=== PATIENT | female | born 1955 | race Two or more races ===

== ENCOUNTER 2019-06-21 08:07 | Emergency (ER) | payer OTHER ==
[~2019-06-21] VITALS: Ht 167.6 cm; Wt 68.0 kg
[2019-06-21 08:59] LABS: BASOPHIL % 0.5 % (0-2); PLATELET COUNT 375 x10^3mcL (130-400); RED CELL DISTRIBUTION WIDTH 13.5 % (11.5-14.5)
[2019-06-21 09:01] LABS: ALKALINE PHOSPHATASE 108 U/L (46-116); ALT/SGPT 48 U/L (14-59); AST/SGOT 26 U/L (15-37); BILIRUBIN TOTAL 0.4 mg/dL (0.20-1.00); CARBON DIOXIDE 26.4 mmol/L (21-32); CHLORIDE SERUM 107 mmol/L (98-107); CREATININE SERUM 0.6 mg/dL (0.6-1.0); GFR1 > 60 mL/min; GLUCOSE SERUM 172 mg/dL (74-106); POTASSIUM SERUM 4.3 mmol/L (3.5-5.1); SODIUM SERUM 140 mmol/L (136-145); TOTAL PROTEIN, SERUM 6.9 g/dL (6.4-8.2)
[2019-06-21 09:08] LABS: ALBUMIN 3.3 g/dL (3.4-5.0)
[2019-06-21 11:28] VITALS: BP 102/69
== END 2019-06-21 11:28 | disposition home or self-care (01) ==
LOC: ED 08:07
PROVIDERS: Emergency Medicine
DX: R55 Syncope and collapse (principal); R25.3 Fasciculation; R25.1 Tremor, unspecified; R53.1 Weakness
CPT/HCPCS: J7030